=== PATIENT | female | born 1990 | race Caucasian/White ===

== ENCOUNTER 2016-09-22 07:47 | Emergency (ER) | payer OTHER, MEDICAID ==
[~2016-09-22] VITALS: Ht 170.2 cm; Wt 64.4 kg
[2016-09-22 07:55] VITALS: BP 146/85; PULSE 122; RESP 16; TEMP 98.2; O2SAT 100
[2016-09-22] MEDS ORDERED: LORazepam 2 MG/ML VIAL (FOR ER USE) IVP ONE (08:00)
--- NOTE | 2016-09-22 08:05 | NUR ---
Pt placed in room 4 for MSE, here for anxiety feelings. MD Alvarez at bedside.
--- NOTE | 2016-09-22 08:06 | NUR ---
ER at bedside examining patient.
--- NOTE | 2016-09-22 08:07 | NUR ---
Pt presents to ED c/o anxiety and SOB. Pt recently dx:Bronchitis w/o starting abx. Pt has no acute resp distress noted.Pt speaking in full sentences.
[2016-09-22] MEDS ORDERED: LORazepam 2 MG/ML VIAL (FOR ER USE) IM ONE (08:15)
[2016-09-22] MEDS ORDERED: AMIT10TA6 (08:17)
--- NOTE | 2016-09-22 08:25 | NUR ---
Pt medicated for anxiety.
--- NOTE | 2016-09-22 08:30 | NUR ---
Pt tolerated medication well.
[2016-09-22 08:36] LABS: BASOPHILS % (AUTO) 0.1 % (0.0-2.0); HEMOGLOBIN 14.1 g/dL (12.0-16.0); LYMPHOCYTES # (AUTO) 1.5 K/uL (1.0-5.5); LYMPHOCYTES % (AUTO) 10.3 % (20.5-51.5); MEAN CORPUSCULAR HEMOGLOBIN 29 pg (27-31); MEAN CORPUSCULAR HGB CONC 34 % (32-36); MEAN CORPUSCULAR VOLUME 86 fL (79.0-98.0); MONOCYTES # (AUTO) 0.5 K/uL (0.0-1.0); MONOCYTES % (AUTO) 3.5 % (1.7-9.3); NEUTROPHILS # (AUTO) 12.2 K/uL (1.8-7.7); NEUTROPHILS % (AUTO) 86.1 % (40.0-70.0); PLATELET COUNT (AUTO) 321 K/uL (130-430); RED BLOOD CELL COUNT(AUTO) 4.87 MIL/uL (4.2-6.2); RED CELL DISTRIBUTION WIDTH 12.9 % (9.0-15.0); WHITE BLOOD COUNT (AUTO) 14.2 K/uL (4.8-10.8)
[2016-09-22 08:38] LABS: CREATININE 0.74 mg/dL (0.55-1.30); POTASSIUM 3.9 mmol/L (3.5-5.1)
[2016-09-22 08:43] LABS: ALBUMIN 4.4 g/dL (3.4-4.8); TOTAL BILIRUBIN 0.2 mg/dL (0.0-1.0); TOTAL PROTEIN, SERUM 8.9 g/dL (6.4-8.3)
--- NOTE | 2016-09-22 09:20 | NUR ---
Pt remains slightly tachycardiac w/o fever or change in BP. Dr. Alvarez at bedside for POC.
[2016-09-22 09:22] LABS: BARBITURATE, URINE NEGATIVE (NEG <=200); BENZODIAZEPINE, URINE POSITIVE (NEG <=150); CANNABINOID, URINE NEGATIVE (NEG <=50); COCAINE, URINE NEGATIVE (NEG <=150); METHAMPHETAMINES SCREEN,URINE NEGATIVE (NEG <=500); OPIATE, URINE NEGATIVE (NEG <=100); PHENCYCLIDINE SCREEN,URINE NEGATIVE (NEG <=25); UR TRICYCLIC ANTIDEPRESSANTS POSITIVE (NEG <=300); URINE AMPHETAMINE NEGATIVE (NEG <=500); URINE METHADONE NEGATIVE (NEG <=200); URINE OXYCODONE SCREEN NEGATIVE (NEG <=100); URINE PROPOXYPHENE SCREEN NEGATIVE (NEG <=300)
[2016-09-22] MEDS ORDERED: IPRATROPIUM/ALBUTEROL SULFATE 3 ML AMPUL.NEB ONE (09:39)
[2016-09-22] MEDS ORDERED: IPRATROPIUM/ALBUTEROL SULFATE 3 ML AMPUL.NEB INH ONE (09:45)
[2016-09-22] MEDS ORDERED: LORazepam 1 MG TABLET PO ONE (09:45)
--- NOTE | 2016-09-22 09:45 | NUR ---
Pt finished breathing tx.Tolerated well.
[2016-09-22 10:00] VITALS: BP 127/86; PULSE 94; RESP 16; TEMP 98.2; O2SAT 100
--- NOTE | 2016-09-22 10:00 | NUR ---
Patient given written and verbal discharge instructions and verbalizes understanding. ER MD discussed with patient the results and treatment provided. Given copies of tests performed in ER. Patient in stable condition. ID arm band removed. Rx of ATIVAN given. Patient educated on pain management and to follow up with PMD. Pain Scale 0. Opportunity for questions provided and answered.
== END 2016-09-22 10:00 | disposition home or self-care (01) ==
LOC: SED 07:47
DX: J20.9 Acute bronchitis, unspecified (principal); F41.9 Anxiety disorder, unspecified; R03.0 Elevated blood-pressure reading, without diagnosis of hypertension
CPT/HCPCS: 36415; 80053; 80307; 85025; 93005; 94640; 96372; 99285; J2060

== ENCOUNTER 2016-10-04 13:15 | Emergency (ER) | payer OTHER, MEDICAID ==
[~2016-10-04] VITALS: Ht 170.2 cm; Wt 77.1 kg
[2016-10-04 13:15] VITALS: BP_SYST 126
[~2016-10-04 13:15] MED LIST: AMIT10TA6
--- NOTE | 2016-10-04 13:15 | NUR ---
BROUGHT BACK TO BED #6 AND TRIAGED. REPORT GIVEN TO TIMOTHY
--- NOTE | 2016-10-04 13:17 | NUR ---
PT. TO THE ER AAOX4 FROM HOME STATES THAT SHE HAS BUG BITES TO HER BODY, HIVES TO LEFT UPPER ARM, RIGHT ARM AND LEFT LEG, STATES SHE HAS A HISTORY OF ANXIETY, DENIES PAIN, STATES THERE IS DISCOMFORT, DENIES N/V/D DENIES CP, DENIES SOB
--- NOTE | 2016-10-04 13:20 | NUR ---
DR. MIGUEL AT BEDSIDE EXAMINING THE PT.
[2016-10-04 13:50] VITALS: BP_SYST 121
--- NOTE | 2016-10-04 13:50 | NUR ---
Patient given written and verbal discharge instructions and verbalizes understanding. ER MD DR. MIGUEL discussed with patient the results and treatment provided. Patient in stable condition. ID arm band removed. Rx of ATARAX FEFLEX PREDNISONE given. Patient educated on pain management and to follow up with PMD. Pain Scale 0/10 Opportunity for questions provided and answered.
== END 2016-10-04 13:50 | disposition home or self-care (01) ==
LOC: SED 13:15
DX: L03.114 Cellulitis of left upper limb (principal); W57.XXXA Bitten or stung by nonvenomous insect and other nonvenomous arthropods, initial encounter; Y93.89 Activity, other specified; Y92.89 Other specified places as the place of occurrence of the external cause; Y99.8 Other external cause status
CPT/HCPCS: 99283

== ENCOUNTER 2018-02-24 22:02 | Emergency (ER) | payer MEDICAID, OTHER ==
[~2018-02-24] VITALS: Ht 170.2 cm; Wt 73.0 kg
[2018-02-24 22:56] VITALS: BP_SYST 149
[2018-02-25 01:02] LABS: BILIRUBIN,URINE NEGATIVE (NEGATIVE); BLOOD, URINE 3+ (NEGATIVE); CLARITY/URINE CLEAR (CLEAR); COLOR,URINE YELLOW (YELLOW); GLUCOSE,URINE NEGATIVE (NEGATIVE); KETONES,URINE NEGATIVE (NEGATIVE); LEUKOCYTE ESTERASE ,URINE 3+ (NEGATIVE); NITRITE, URINE NEGATIVE (NEGATIVE); PH,URINE 6.5 (5.0-8.0); PROTEIN URINE NEGATIVE (NEGATIVE); UROBILINOGEN,URINE 0.2 (0.2-1.0)
[2018-02-25 01:33] LABS: BACTERIA,URINE FEW /HPF (None Seen); WBC,URINE 20-50 /HPF (0-3)
[2018-02-25] MEDS ORDERED: cefTRIAXone 1 GM in LIDOCAINE 1%, 20 ML MDV 2.1 ML IM ONE (01:45)
[2018-02-25 02:07] VITALS: BP_SYST 129
== END 2018-02-25 02:07 | disposition home or self-care (01) ==
LOC: SED 22:02
DX: N12 Tubulo-interstitial nephritis, not specified as acute or chronic (principal); N39.0 Urinary tract infection, site not specified; F41.9 Anxiety disorder, unspecified
CPT/HCPCS: 81000; 81025; 87086; 96372; 99284; J0696; J2001